=== PATIENT | male | born 1995 | race Caucasian/White ===

== ENCOUNTER 2018-11-05 10:27 | Emergency (ER) | payer MEDICAID ==
[~2018-11-05] VITALS: Ht 182.9 cm; Wt 100.9 kg
[2018-11-05 10:32] VITALS: Ht 182.9 cm; Wt 100.9 kg
[2018-11-05 11:25] LABS: APPEARANCE CLEAR (CLEAR); BILIRUBIN NEGATIVE (NEGATIVE); COLOR YELLOW (YELLOW); GLUCOSE NEGATIVE (NEGATIVE); KETONE NEGATIVE (NEGATIVE); NITRITE NEGATIVE (NEGATIVE); PROTEIN NEGATIVE (NEGATIVE); UROBILINOGEN NORMAL (NORMAL)
[2018-11-05] MEDS ORDERED: TORADOL10 MG PO (13:20)
[2018-11-05 14:13] VITALS: BP 118/87
[2018-11-09 16:15] LABS: CHLAMYDIA TRACHOMATIS, NAA Negative (Negative)
== END 2018-11-05 14:05 | disposition home or self-care (01) ==
LOC: D.ER 10:27
PROVIDERS: Family Medicine
DX: N45.1 Epididymitis (principal); R30.0 Dysuria